=== PATIENT | male | born 1990 | race Two or more races ===

== ENCOUNTER 2025-07-04 16:55 | Emergency (ER) | payer OTHER ==
[~2025-07-04] VITALS: Ht 180.3 cm; Wt 110.0 kg
[2025-07-04 16:56] VITALS: BP 132/74; PULSE 75; RESP 18; TEMP 97.7; O2SAT 98
[2025-07-04] MEDS ORDERED: ESCI-8 PO (17:03)
== END 2025-07-04 21:01 | disposition home or self-care (01) ==
LOC: EMS 16:55
DX: S01.112A Laceration without foreign body of left eyelid and periocular area, initial encounter (principal); S01.111A Laceration without foreign body of right eyelid and periocular area, initial encounter; Z79.899 Other long term (current) drug therapy; Z87.891 Personal history of nicotine dependence; V29.99XA Rider (driver) (passenger) of other motorcycle injured in unspecified traffic accident, initial encounter; Y93.89 Activity, other specified; Y92.410 Unspecified street and highway as the place of occurrence of the external cause; Y99.8 Other external cause status
CPT/HCPCS: 12011; 70450; 72125; 99284

== ENCOUNTER 2025-08-01 21:35 | Emergency (ER) | payer SELFPAY ==
[~2025-08-01] VITALS: Ht 182.9 cm; Wt 104.5 kg
[~2025-08-01 21:35] MED LIST: ESCI-8 PO
[2025-08-01] MEDS ORDERED: LORazepam 2 MG/ML VIAL IM ONE (22:45)
[2025-08-01 23:31] LABS: CALCIUM, TOTAL 8.3 mg/dL (8.8-10.5); CREATININE 0.87 mg/dL (0.60-1.30); GLOMERULAR FILTR. RATE CALC > 60 mL/min (>60); GLUCOSE,RANDOM 101 mg/dL (70-110); SODIUM SERUM 138 mmol/L (136-145); UREA NITROGEN, BLOOD 13 mg/dL (7-18)
[2025-08-01 23:56] LABS: PLATELET COUNT (AUTO) 290 K/uL (150-450); RED BLOOD CELL COUNT(AUTO) 5.05 MIL/uL (4.50-5.90); RED CELL DISTRIBUTION WIDTH 13.5 % (11.5-14.5); WHITE BLOOD COUNT (AUTO) 12.4 K/uL (4.5-11.0)
[2025-08-02 00:17] VITALS: BP 145/84; PULSE 85; RESP 20; TEMP 97.7; O2SAT 99
== END 2025-08-02 00:38 ==
LOC: EMS 21:39
DX: F10.129 Alcohol abuse with intoxication, unspecified (principal); Z87.891 Personal history of nicotine dependence; Z79.899 Other long term (current) drug therapy; Y90.7 Blood alcohol level of 200-239 mg/100 ml
CPT/HCPCS: 99283; 80048; 85025; 36415; G0480